=== PATIENT | male | born 1985 | race Caucasian/White ===

== ENCOUNTER 2016-06-11 09:18 | Inpatient (IN) ==
[2016-06-11] MEDS ORDERED: VANCOMYCIN 1 GM/NS 250 ML IV ONE ×2 (09:52→17:00)
--- NOTE | 2016-06-11 09:53 | PROVIDER DOCUMENTATION ---
HPI-Rash/Wound/ReCheck - General Source: patient - History of Present Illness-Dermatology Location: reports: upper extremity (left forearm) Quality: reports: painful Severity: reports: moderate Onset/Duration: reports: abrupt, 3 days ago Timing: reports: still present, getting worse Context/Associated Symptoms: reports: insect bite/sting Locality of Occurance: Home Similar Symptoms Previously?: No Recently seen or treated by another doctor?: No <Larry Acosta - Last Filed: 06/11/16 09:48> <Iban Ogden - Last Filed: 06/11/16 12:33> - General Chief Complaint: Sores/Lesions Stated Complaint: RASH Time Seen by Provider: 06/11/16 09:47 Allergies/Adverse Reactions: Allergies Allergy/AdvReac Type Severity Reaction Status Date / Time codeine Allergy Mild HIVES Verified 01/05/16 20:44 Home Medications: Home Medication List Medication Instructions Recorded Confirmed Last Taken Type Oxycodone HCl/Acetaminophen 1 - 2 each PO Q4-6H PRN PRN #60 01/15/16 Unknown Rx [Percocet 5-325 mg Tablet] tablet - History of Present Illness-Dermatology Nature of Presenting Problem: pt is a 31 y/o M that presents with redness to left forearm after getting a possible insect bite x 3 days ago. patient reports area was small like a dime and now has redness to it. reports fever but no n/v/d. Patient reports getting dirt in it. (Larry Acosta) Review of Systems - Adult - REVIEW OF SYSTEMS - ADULT Constitutional: reports: fever. denies: chills Eyes: reports: no symptoms reported Ears, Nose, Mouth & Throat: reports: no symptoms reported Cardiovascular: denies: chest pain, palpitations, syncope Respiratory: denies: cough, shortness of breath, other Gastrointestinal: denies: abdominal pain, diarrhea, nausea, vomiting Genitourinary: reports: no symptoms reported Musculoskeletal: denies: joint pain, joint swelling Integumentary: reports: skin sores/ulcer. denies: hives, hair loss Neurological: reports: no symptoms reported Psychiatric: reports: no symptoms reported Endocrine: reports: no symptoms reported Hematologic/Lymphatic: reports: no symptoms reported Allergic/Immunologic: reports: no symptoms reported All Other Systems: Reviewed and Negative <Larry Acosta - Last Filed: 06/11/16 09:48> Past History - Adult - PAST MEDICAL HISTORY-ADULT Review of Records: reports: Old Records Reviewed, Nursing Assessment Review, Medications Reviewed Cardiovascular: reports: murmur, other (hx of tachycardia) Neurological: reports: headaches/migraines Psychiatric: reports: anxiety - PRIOR SURGERIES/PROCEDURES Surgical/Procedure History: reports: none - IMMUNIZATION STATUS Childhood Immunizations: UTD Flu Vaccine: NUTD - FAMILY HISTORY Family History: reviewed, not pertinent - SOCIAL HISTORY Smoking: cigarettes, less than 1 pack/day Living Situation: family <Larry Acosta - Last Filed: 06/11/16 09:48> Physical Exam-General - PHYSICAL EXAM-ADULT Initial Vital Signs Reviewed: Yes - CONSTITUTIONAL General Appearance: alert, no apparent distress - EYES Eyes: PERRL/EOMI, pink conjunctivae - HEAD, EARS, NOSE, MOUTH & THROAT HENMT: normocephalic/atraumatic, moist mucous membranes, normal ENT inspection - NECK Neck: full range of motion, normal inspection - RESPIRATORY Respiratory: lungs clear, normal breath sounds, no respiratory distress, no accessory muscle use - CARDIOVASCULAR Cardiovascular: no edema, no murmur, tachycardia - GASTROINTESTINAL (ABDOMEN) Abdominal Exam: normal bowel sounds, non tender, soft - MUSCULOSKELETAL Extremity: no pedal edema, normal capillary refill, pelvis stable - SKIN Integumentary: warm/dry, erythema (left forearm indurated with no fluquence), warm (left forearm hot to touch), other (dime size area to left forearm circular ) - PSYCHIATRIC Psych/Mental Status: normal mood/affect, oriented x 3 <Larry Acosta - Last Filed: 06/11/16 09:48> Progress <Larry Acosta - Last Filed: 06/11/16 09:48> - CONSULTS/PCP/HOSPITALIST Notification #1 *Consult/PCP/Hospitalist*: Dr. Pérez Time Discussed: 12:28 Reason/Comments: Admission Consult Disposition: Admit <Iban Ogden - Last Filed: 06/11/16 12:33> - PLAN OF CARE/RESULTS Progress/Plan/Lab Results: Dr. Baldwin at bedside for evaluation Discussed results and plan of care with patient. Patient agrees with plan and verbalizes understanding. Vital Signs Temp Pulse Resp BP Pulse Ox 06/11/16 11:39 94 H 16 95 06/11/16 09:43 100 F H 122 H 18 137/85 99 codeine Allergy (Mild, Verified 01/05/16 20:44) HIVES Oxycodone HCl/Acetaminophen [Percocet 5-325 mg Tablet] 1 - 2 each PO Q4-6H PRN PRN #60 tablet 01/15/16 Laboratory 06/11/16 06/11/16 06/11/16 10:09 10:00 10:00 WBC 19.27 H RBC 5.69 Hgb 16.0 Hct 47.8 MCV 84.0 MCH 28.1 MCHC 33.5 RDW Std Deviation 14.4 Plt Count 145 MPV 11.5 H Immature Gran % (Auto) 0.4 Neut % (Auto) 84.9 H Lymph % (Auto) 5.2 L [place] % (Auto) 9.3 Eos % (Auto) 0.0 Baso % (Auto) 0.2 Immature Gran # (Auto) 0.07 H Neut # (Auto) 16.38 H Lymph # (Auto) 1.00 L [place] # (Auto) 1.79 H Eos # (Auto) 0.00 Baso # (Auto) 0.03 Sodium 132 L Potassium 4.0 Chloride 93 L Carbon Dioxide 21 L Anion Gap 18 BUN 10 Creatinine 0.9 Estimated GFR/1.73 m2 > 60 BUN/Creatinine Ratio 11 Glucose 118 H Calculated Osmolality 265 Calcium 9.8 Total Bilirubin 1.00 AST 22 ALT 38 Alkaline Phosphatase 135 H Total Protein 8.8 H Albumin 5.0 Globulin 4.0 Albumin/Globulin Ratio 1.0 Plasma Lactate 1.3 Orders Category Date Time Status Saline Loc NOW Care 06/11/16 09:51 Completed BLOOD CULTURE [BLDCUL] Stat Lab 06/11/16 10:26 Ordered CBC WITH ELECTRONIC DIFF [HEME] Stat Lab 06/11/16 10:09 Completed COMPREHENSIVE METABOLIC PANEL [CHEM] Stat Lab 06/11/16 10:00 Completed LACTATE, PLASMA [CHEM] Stat Lab 06/11/16 10:00 Completed UDS [URINE DRUG SCREEN PL] Stat Lab 06/11/16 12:[address] [URINALYSIS] Stat Lab 06/11/16 12:13 Ordered 0.9% Sodium Chloride Inj [Ns] 1,000 ml Med 06/11/16 10:25 Discontinued IV 999 mls/hr Acetaminophen [Tylenol] Med 06/11/16 10:27 Discontinued 1,000 mg PO NOW ONE Vancomycin 1 gm/Ns 250 ml Med 06/11/16 09:52 Discontinued IV NOW Laboratory Tests 06/11/16 06/11/16 06/11/16 10:00 10:00 10:09 WBC 19.27 H RBC 5.69 Hgb 16.0 Hct 47.8 MCV 84.0 MCH 28.1 MCHC 33.5 RDW Std Deviation 14.4 Plt Count 145 MPV 11.5 H Immature Gran % (Auto) 0.4 Neut % (Auto) 84.9 H Lymph % (Auto) 5.2 L [place] % (Auto) 9.3 Eos % (Auto) 0.0 Baso % (Auto) 0.2 Immature Gran # (Auto) 0.07 H Neut # (Auto) 16.38 H Lymph # (Auto) 1.00 L [place] # (Auto) 1.79 H Eos # (Auto) 0.00 Baso # (Auto) 0.03 Sodium 132 L Potassium 4.0 Chloride 93 L Carbon Dioxide 21 L Anion Gap 18 BUN 10 Creatinine 0.9 Estimated GFR/1.73 m2 > 60 BUN/Creatinine Ratio 11 Glucose 118 H Calculated Osmolality 265 Calcium 9.8 Total Bilirubin 1.00 AST 22 ALT 38 Alkaline Phosphatase 135 H Total Protein 8.8 H Albumin 5.0 Globulin 4.0 Albumin/Globulin Ratio 1.0 Plasma Lactate 1.3 (Iban Ogden) Departure <Larry Acosta - Last Filed: 06/11/16 09:48> - Departure Time of Disposition Order: 12:15 Certified Medical Emergency: Emergent <Iban Ogden - Last Filed: 06/11/16 12:33> - Departure DIAGNOSIS: Cellulitis Qualifiers: Site of cellulitis: extremity Site of cellulitis of extremity: upper extremity Laterality: left Qualified Code(s): L03.114 - Cellulitis of left upper limb Disposition: ADMITTED INPATIENT 09 Condition: Stable Referrals: None,PCP [Primary Care Provider] - Attestation - Scribe Verification/Attestation Scribe:: Larry Acosta Acting as Scribe for:: Iban Ogden Scribe documention review:: This chart was documented by a scribe and accurately reflects the service the provider performed and the decisions made by the provider. - Physician/ IRASEMA Attestation Patient care was provided by Advanced Practice Provider:: Yes Advanced Practice Provider:: Iban Ogden Advanced Practice Provider documentation review:: The Mid-level provider documentation, treatment plan and medical decision making was reviewed by the physician who agrees with all treatment and medical decision making by the MLP. <Larry Acosta - Last Filed: 06/11/16 09:48> - Physician/ IRASMEA Attestation Patient care was provided by Advanced Practice Provider:: Yes Advanced Practice Provider:: Iban Ogden Advanced Practice Provider documentation review:: The Mid-level provider documentation, treatment plan and medical decision making was reviewed by the physician who agrees with all treatment and medical decision making by the MLP. The physician spent face to face time with patient:: Yes Advanced Practice Provider documentation review:: The physician spent face to face time with this patient and agrees with all MLP documentation, treatment, and medical decision making by the MLP. See provider notes for further information. <Iban Ogden - Last Filed: 06/11/16 12:33> Physician Attestation - Physician Attestation I, the provider, attest to the following statement:: Iban Ogden Physician documentation Attestation:: This documentation recorded by the scribe accurately reflects the service I personally performed and the decisions made by me. <Larry Acosta - Last Filed: 06/11/16 09:48> - Physician Attestation I, the provider, attest to the following statement:: Iban Ogden Physician documentation Attestation:: This documentation recorded by the scribe accurately reflects the service I personally performed and the decisions made by me. <Iban Ogden - Last Filed: 06/11/16 12:33>
[2016-06-11 10:10] LABS: MANUAL DIFF NEEDED? NO
[2016-06-11 10:12] LABS: BASO% 0.2 % (0.0-0.8); HEMATOCRIT 47.8 % (42.0-52.0); IMM GRAN# 0.07 X1000 (0.0-0.04); IMM GRAN% 0.4 % (0.0-0.5); LYMPH% 5.2 % (20.5-51.1); MCH 28.1 PG (27-31); MCHC 33.5 g/dL (33-37); MONO# 1.79 X1000 (0.11-0.59); MONO% 9.3 % (1.7-9.3); MPV 11.5 FL (7.4-10.4); NEUT% 84.9 % (42.2-75.2); PLT 145 X1000 (130-400); RBC 5.69 XMIL (4.7-6.1)
[2016-06-11] MEDS ORDERED: NS 1,000 ML IV ONE (10:25)
[2016-06-11] MEDS ORDERED: TYLENOL PO ONE (10:27)
[2016-06-11 10:44] LABS: AGAP 18; ALKALINE PHOSPHATASE 135 U/L (32-122); BUN 10 mg/dL (8-22); CALCIUM 9.8 mg/dL (8.8-10.2); CHLORIDE 93 mmol/L (98-107); COSMO 265; GOT 22 U/L (10-34); GPT 38 U/L (10-44); SODIUM 132 mmol/L (136-145); TCO2 21 mmol/L (25-35); TOTAL PROTEIN 8.8 g/dL (6.3-8.3)
[2016-06-11] MEDS ORDERED: VANCOMYCIN IV PER PHARMACY MISC SCH (12:30)
[2016-06-11 14:09] LABS: URINE SOURCE CLEAN CATCH
[2016-06-11 14:22] LABS: BILIRUBIN URINE NEGATIVE (NEGATIVE); BLOOD URINE NEGATIVE (NEGATIVE); CLARITY CLEAR (CLEAR); COLOR YELLOW; GLUCOSE URINE NEGATIVE (NEGATIVE); LEUKOCYTES URINE NEGATIVE (NEGATIVE); NITRITE URINE NEGATIVE (NEGATIVE); PROTEIN URINE TRACE mg/dL (NEGATIVE); URINE MICROSCOPIC NEEDED? YES; UROBILINOGEN URINE NORMAL
[2016-06-11 14:24] LABS: UR AMPHETAMINES QUAL NONE DETECTED (NONE DETECT); UR BARBITUATES QUAL NONE DETECTED (NONE DETECT); UR BENZODIAZEPIN QUAL PRESUMPTIVE POSITIVE (NONE DETECT); UR CANNABINOIDS QUAL PRESUMPTIVE POSITIVE (NONE DETECT); UR COCAINE QUAL NONE DETECTED (NONE DETECT); UR MDMA QUAL NONE DETECTED (NONE DETECT); UR METHADONE QUAL NONE DETECTED (NONE DETECT); UR METHAMPHETAMINE QUAL NONE DETECTED (NONE DETECT); UR OPIATES QUAL NONE DETECTED (NONE DETECT); UR OXYCODONE QUAL PRESUMPTIVE POSITIVE (NONE DETECT); UR PCP QUAL NONE DETECTED (NONE DETECT); UR TCA QUAL PRESUMPTIVE POSITIVE (NONE DETECT)
[2016-06-11 14:28] LABS: URINE EPITHELIAL CELLS <10 /HPF (<10); URINE WBC <10 /HPF (<10)
[2016-06-11] MEDS: TORADOL IV PRN ×2 (15:05→22:19)
[2016-06-11] MEDS: SODIUM CHLORIDE 0.9% INJ SCH (15:20)
[2016-06-11] MEDS: NS 1,000 ML IV SCH (15:20)
[2016-06-11] MEDS: PROTONIX IV SCH (15:20)
--- NOTE | 2016-06-11 15:23 | HISTORY AND PHYSICAL ---
PRIMARY CARE PHYSICIAN: None. CHIEF COMPLAINT: Left forearm redness and swelling for 3 days that has progressively worsened. HISTORY OF PRESENTING ILLNESS: This is a 31-year-old male who presented to [facility] ER with complaints of left forearm redness that had progressively worsened for 3 days. 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 When he did, he noted that he had black oil on his arm. He had a previous scab to his left forearm and when he woke up the next morning, it began being erythematous, edematous, and warm to touch, and has progressively worsened. Workup in the ER showed a temperature of 100 degrees, a pulse of 122, and blood pressure was 137/ 85. Workup in the ER showed a white blood cell count of 19.27. Sodium was 132. Urinalysis was negative. Urine drug screen was presumptive positive for oxycodone, tricyclics, benzodiazepines , and cannabinoids. The patient does state that he was a former IV drug user, but has not used in over a year. He is being admitted for further evaluation and treatment. PAST MEDICAL HISTORY: Migraines and anxiety. PAST SURGICAL HISTORY: None. FAMILY HISTORY: Noncontributory. SOCIAL HISTORY: He currently lives with family. Smokes 1-2 packs of cigarettes a day and has done so since he was 17 years old. Denies any alcohol and uses marijuana occasionally. Last use was 2 weeks ago. ALLERGIES: Codeine. HOME MEDICATIONS: Percocet 5, 1-2 p.o. q.4-6 hours p.r.n. will be continued. LABORATORY DATA: White blood cell count of 19.27, hemoglobin 16, hematocrit 47.8, platelets 145,000. Sodium 132, potassium 4.0, chloride 93, CO2 of 21, BUN 10, creatinine 0.9, glucose 118. Plasma lactate was 1.3. Urinalysis was negative. Urine drug screen was presumptive positive for oxycodone, tricyclics, benzodiazepines, and cannabinoids. REVIEW OF SYSTEMS: Positive for a subjective fever, some chills. Denied any dizziness, lightheadedness, chest pain, coughing, shortness of breath, abdominal pain, constipation, diarrhea, burning or hurting with urination. He is positive for pain to his left forearm. PHYSICAL EXAMINATION: VITAL SIGNS: On arrival, he had a temperature of 100 degrees, with a pulse of 122, respirations 18, blood pressure 137/85, saturating 99% on room air. Currently, his temperature is down to 99.1, pulse 90, respirations 16, blood pressure 121/74, saturating 95% on room air. GENERAL: This is a 31-year-old male who is sitting on the side of the bed and answers questions appropriately. HEENT: Normocephalic and atraumatic. Pupils are equal, round, and reactive to light. Extraocular movements are intact. Oropharynx and nares are clear. NECK: Supple. LUNGS: Clear to auscultation bilaterally, with equal lung expansion and chest wall movement. HEART: Regular rate and rhythm. No murmurs, rubs, or gallops. ABDOMEN: Soft, nontender, nondistended. Bowel sounds are present x4 quadrants. EXTREMITIES: Patient is noted to have erythema, edema, and warmth to touch. He is noted to have about a dime-sized circular scabbed area to his lower left forearm. It is unclear if he has had any type of bug bite or if this is strictly just a scabbed area from a possible scratch that has gotten infected. Otherwise, no clubbing, cyanosis, or edema. NEUROLOGICAL: The cranial nerves 2-12 are grossly intact. ASSESSMENT: 1. Left forearm cellulitis. 2. Leukocytosis. 3. Tobacco abuse. 4. Marijuana abuse. PLAN: He is being admitted to the medical unit at [facility]. Placed on a regular diet. Blood cultures x2 are pending. Placed him on vancomycin per pharmacy protocol. Normal saline at 125 mL an hour. Toradol 30 mg IV q.6 hours p.r.n., Protonix 40 mg IV q.24, Zofran 4 mg IV q.4 hours p.r.n., and his home medication of Percocet 5, 1-2 p.o. q.4-6 hours p.r.n. We will recheck a CBC and BMP in the a.m. Dictated by HEATHER Silva for Brigido Pérez MD pt examined, agree with above, suspicious he may be injecting versus skin popping, will follow closely, puruse imaging tomorrow if not clinically improved APENOT MTDD
[2016-06-11] MEDS: PERCOCET-5 PO PRN ×2 (16:04→20:30)
[2016-06-11] MEDS: LOVENOX SUBQ SCH (17:03)
[2016-06-11] MEDS: NICODERM PATCH TD SCH (20:26)
[2016-06-11] MEDS: KLONOPIN PO SCH (23:05)
--- NOTE | 2016-06-12 00:19 | EKG Report ---
Test Performed on : 06/11/2016 10:33:33 PM Test Reason : CP Blood Pressure : / mmHG Vent. Rate : 077 BPM Atrial Rate : 077 BPM P-R Int : 126 ms QRS Dur : 092 ms QT Int : 338 ms P-R-T Axes : 068 086 065 degrees QTc Int : 382 ms Normal sinus rhythm. Incomplete right bundle branch block Borderline ECG When compared with ECG of 16-OCT-2014 16:08, QT has shortened Confirmed by Omi BYERS, Alin Heller ([id number]) on 06/12/2016 8:00:07 PM
[2016-06-12] MEDS: NS 1,000 ML IV SCH ×3 (00:58→12:09)
[2016-06-12] MEDS: PERCOCET-5 PO PRN ×4 (01:03→11:57)
[2016-06-12] MEDS: TYLENOL PO PRN (03:15)
[2016-06-12] MEDS ORDERED: BLISTEX MEDICATED BERRY LIP BALM TOP PRN (03:17)
[2016-06-12] MEDS: VANCOMYCIN 1,400 MG in NS 250 ML IV SCH ×2 (04:03→18:14)
[2016-06-12] MEDS: TORADOL IV PRN ×3 (04:07→20:38)
[2016-06-12] MEDS: ZOFRAN IV PRN (05:49)
[2016-06-12 06:18] LABS: MANUAL DIFF NEEDED? NO
[2016-06-12 06:29] LABS: BASO% 0.2 % (0.0-0.8); EOS# 0.11 X1000 (0.0-0.7); EOS% 1.2 % (0.0-10.0); HEMATOCRIT 38.1 % (42.0-52.0); HEMOGLOBIN 12.6 g/dL (14.0-18.0); IMM GRAN# 0.03 X1000 (0.0-0.04); IMM GRAN% 0.3 % (0.0-0.5); LYMPH# 0.95 X1000 (1.2-3.4); LYMPH% 10.1 % (20.5-51.1); MCH 28.2 PG (27-31); MCHC 33.1 g/dL (33-37); MCV 85.2 FL (81-99); MONO# 1.38 X1000 (0.11-0.59); MONO% 14.7 % (1.7-9.3); MPV 12.3 FL (7.4-10.4); NEUT% 73.5 % (42.2-75.2); PLT 111 X1000 (130-400); RBC 4.47 XMIL (4.7-6.1)
[2016-06-12 07:34] LABS: AGAP 12; BUN 8 mg/dL (8-22); CALCIUM 8.8 mg/dL (8.8-10.2); CHLORIDE 105 mmol/L (98-107); COSMO 273; SODIUM 137 mmol/L (136-145); TCO2 20 mmol/L (25-35)
--- NOTE | 2016-06-12 08:58 | Diag Imaging Result Document ---
PROCEDURE NAME: CHEST-PORTABLE - 06/11/2016 PORTABLE CHEST: COMPARISON: 06/14/2014. FINDINGS: Heart size is normal. The lungs appear clear. There is no pleural effusion or pneumothorax identified. IMPRESSION: No evidence of acute disease.
[2016-06-12] MEDS: NICODERM PATCH TD SCH (09:56)
[2016-06-12] MEDS: KLONOPIN PO SCH ×2 (09:56→20:38)
[2016-06-12] MEDS ORDERED: NUBAIN IV PRN ×2 (13:42→23:02)
[2016-06-12] MEDS: PROTONIX IV SCH (14:35)
[2016-06-12] MEDS: SODIUM CHLORIDE 0.9% INJ SCH (14:35)
[2016-06-12] MEDS: CLINDAMYCIN 600 MG/NS 50 ML IV SCH (16:38)
[2016-06-12] MEDS: PERCOCET-10 PO PRN ×2 (16:39→23:57)
[2016-06-12] MEDS: LOVENOX SUBQ SCH (16:39)
[2016-06-12 18:21] LABS: UR AMPHETAMINES QUAL NONE DETECTED (NONE DETECT); UR BARBITUATES QUAL NONE DETECTED (NONE DETECT); UR BENZODIAZEPIN QUAL PRESUMPTIVE POSITIVE (NONE DETECT); UR COCAINE QUAL NONE DETECTED (NONE DETECT); UR MDMA QUAL NONE DETECTED (NONE DETECT); UR METHADONE QUAL NONE DETECTED (NONE DETECT); UR METHAMPHETAMINE QUAL NONE DETECTED (NONE DETECT); UR OPIATES QUAL NONE DETECTED (NONE DETECT); UR OXYCODONE QUAL PRESUMPTIVE POSITIVE (NONE DETECT); UR PCP QUAL NONE DETECTED (NONE DETECT); UR TCA QUAL NONE DETECTED (NONE DETECT)
[2016-06-12 18:22] LABS: UR CANNABINOIDS QUAL PRESUMPTIVE POSITIVE (NONE DETECT)
--- NOTE | 2016-06-12 18:50 | PROGRESS NOTE ---
DATE: 06/12/2016 SUBJECTIVE: Patient has no focal complaints except pain and swelling and his pain is not controlled. OBJECTIVE: Vital signs: Blood pressure 132/91, heart rate of 88, respiratory rate 18, temperature 97.9 degrees. Cardiovascular: Regular rate and rhythm. Pulmonary: Bilateral breath sounds. Clear to auscultation. GI: Soft, nontender, nondistended. Bowel sounds are positive. DIAGNOSTICS: White count normal, 9, hemoglobin and hematocrit 12 and 38, platelets 111,000. His extremity exam is more swollen, more tender, and he has palpable cords along his anterior forearm extending into his antecubital fossa. PROBLEM LIST: 1. Cellulitis of the arm with concern over possible intravenous drug use. He is currently on vancomycin. His white count has greatly improved, but his clinical exam is worse I am going to progress with an ultrasound of the arm to evaluate for deep venous thrombosis versus thrombophlebitis, which again would make this suspicious for IV drug use, although he denies this currently, but has abused drugs in the past. 2. His pain is not controlled. I explained that we could not really give him IV narcotics with his history of drug abuse. He is on oxycodone which is his regular medication. I have increased that. He is on Toradol and we will give him some low-dose Nubain and explained this is all we could do for pain control because of his history. Additionally patient is leaving the floor which is suspicious for surreptitious drug use. We will continue to monitor this closely, repeat urine drug screens as necessary number. 3. Disposition. Pending resolution of his other issues.
[2016-06-12] MEDS: DESYREL PO PRN (23:57)
[2016-06-13] MEDS: CLINDAMYCIN 600 MG/NS 50 ML IV SCH ×4 (00:21→23:45)
[2016-06-13] MEDS ORDERED: NUBAIN IV PRN (02:40)
[2016-06-13] MEDS: PERCOCET-10 PO PRN ×2 (05:30→11:41)
[2016-06-13] MEDS: TORADOL IV PRN ×2 (05:30→11:41)
[2016-06-13] MEDS: VANCOMYCIN 1,400 MG in NS 250 ML IV SCH (05:30)
[2016-06-13 07:03] LABS: HEMATOCRIT 36.2 % (42.0-52.0); HEMOGLOBIN 11.9 g/dL (14.0-18.0); MCH 28.1 PG (27-31); MCHC 32.9 g/dL (33-37); MCV 85.4 FL (81-99); RBC 4.24 XMIL (4.7-6.1)
[2016-06-13 07:23] LABS: AGAP 11; BUN 7 mg/dL (8-22); CALCIUM 8.7 mg/dL (8.8-10.2); CHLORIDE 106 mmol/L (98-107); COSMO 282; POTASSIUM 3.7 mmol/L (3.5-5.1); SODIUM 141 mmol/L (136-145); TCO2 25 mmol/L (25-35)
--- NOTE | 2016-06-13 07:28 | Extremity Venous Study ---
PROCEDURE NAME: Venous U/S Left Arm - 06/12/2016 LEFT UPPER EXTREMITY VENOUS DOPPLER ULTRASOUND: COMPARISON: None. FINDINGS: There is extensive thrombosis in the cephalic and median cubital veins. The deep veins are fully compressible. Normal Doppler signal. No abnormal mass or fluid collection. IMPRESSION: Extensive superficial venous thrombosis of the cephalic and median cubital veins.
[2016-06-13] MEDS: NICODERM PATCH TD SCH ×2 (07:37→09:21)
[2016-06-13] MEDS: KLONOPIN PO SCH ×3 (07:37→14:05)
[2016-06-13] MEDS: ARIXTRA SUBQ SCH ×2 (07:38→09:21)
--- NOTE | 2016-06-13 08:48 | Diag Imaging Result Document ---
PROCEDURE NAME: FOOT COMPLETE LEFT - 06/12/2016 LEFT FOOT, 3 VIEWS: FINDINGS: There is pes cavus. There are bone plates on the 2nd metatarsal distally and stabilizing the proximal 3rd metatarsal to the 3rd cuneiform. No acute fracture or dislocation is present. IMPRESSION: No evidence of acute bony disease.
[2016-06-13] MEDS ORDERED: KLONOPIN PO SCH (09:00)
--- NOTE | 2016-06-13 09:04 | Diag Imaging Result Document ---
PROCEDURE NAME: FOREARM-LEFT - 06/12/2016 LEFT FOREARM TWO VIEWS: INDICATION: Fall. FINDINGS: No fracture, dislocation, or joint space abnormality is appreciated. IMPRESSION: No acute abnormality left forearm.
--- NOTE | 2016-06-13 09:05 | Diag Imaging Result Document ---
PROCEDURE NAME: HUMERUS-LEFT - 06/12/2016 LEFT HUMERUS: INDICATION: Fall. FINDINGS: No fracture, dislocation, or joint space abnormality is appreciated. IMPRESSION: No acute bony abnormality.
--- NOTE | 2016-06-13 09:09 | Diag Imaging Result Document ---
PROCEDURE NAME: HEAD W/O CONTRAST - 06/12/[address] SCAN OF THE BRAIN: INDICATION: Fall. COMPARISON: 01/05/2016. Preliminary interpretation was given by the on-call radiologist. FINDINGS: There are no extraaxial collections. No acute infarct or hemorrhage is demonstrated. There is no hydrocephalus. No midline shift or mass effect. The calvarium is intact. IMPRESSION: No acute intracranial abnormality is appreciated.
[2016-06-13] MEDS ORDERED: PERCOCET-10 PO PRN (13:43)
[2016-06-13] MEDS: PROTONIX IV SCH (13:57)
[2016-06-13] MEDS: SODIUM CHLORIDE 0.9% INJ SCH (13:57)
[2016-06-13] MEDS ORDERED: VANCOMYCIN 1,400 MG in NS 250 ML IV SCH (17:00)
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
[2016-06-13] MEDS ORDERED: VANCOMYCIN 1,600 MG in NS 250 ML IV SCH (18:00)
[2016-06-13] MEDS: VANCOMYCIN 1,600 MG in NS 250 ML IV SCH (18:16)
[2016-06-13] MEDS: DILAUDID PO PRN ×2 (20:39→22:53)
[2016-06-13] MEDS: KLONOPIN PO PRN (20:48)
[2016-06-13] MEDS: ZOFRAN IV PRN (21:48)
[2016-06-13] MEDS: DESYREL PO PRN (22:54)
[2016-06-13] MEDS ORDERED: NS 500 ML ONE (23:38)
[2016-06-14] MEDS: DILAUDID PO PRN ×8 (01:15→20:10)
[2016-06-14] MEDS: VANCOMYCIN 1,600 MG in NS 250 ML IV SCH ×2 (06:00→18:32)
[2016-06-14] MEDS: NICODERM PATCH TD SCH (08:25)
[2016-06-14] MEDS: KLONOPIN PO PRN ×2 (08:25→16:25)
[2016-06-14] MEDS: ZOFRAN IV PRN (08:25)
[2016-06-14] MEDS: ARIXTRA SUBQ SCH (08:25)
[2016-06-14] MEDS: CLINDAMYCIN 600 MG/NS 50 ML IV SCH ×2 (08:40→15:10)
[2016-06-14] MEDS: TORADOL IV PRN ×2 (09:45→16:25)
--- NOTE | 2016-06-14 10:06 | PROGRESS NOTE ---
DATE: 06/13/2016 ADDENDUM REPORT: I again discussed with patient the perils of high-dose opiates as well as high- dose benzodiazepines leading to respiratory suppression and . I discussed with patient that I have never actually heard of anyone taking 4 mg of Klonopin every 2 hours or every 4 hours. Unfortunately he cannot remember any pharmacy that he had gotten these prescriptions legally from. He continues to complain of pain. He continues to want to increase. He wants to take 40 mg of Percocet every 2 hours. I again discussed with him this is not an option, that this will kill his liver. I discussed him that under no circumstances can we increase his pain medication as well as continue such high-dose benzodiazepine. Patient notes that he would like to decrease his benzodiazepines, therefore, we will decrease to 1 mg 3 times a day only as needed. We will change to Dilaudid and we will follow. Unfortunately, patient has a long history of opiate use and abuse, and I am not sure that it is possible to get adequate pain control given his past history. cc: MD Brigido Parsons MD
[2016-06-14] MEDS: PROTONIX IV SCH (13:50)
--- NOTE | 2016-06-14 14:18 | PROGRESS NOTE ---
DATE: 06/14/2016 SUBJECTIVE: The patient continues to have complaints of increased pain. He is asking for Dilaudid every hour. He is asking to increase his Klonopin. He is asking to take Toradol every hour. OBJECTIVE: Vital Signs: Reviewed and stable. Temperature 98 degrees, pulse 102, blood pressure 121/79. General: Patient is a well-developed male who is in no respiratory distress. He is awake, alert. He appears to be in much more pain while he is lying in his examination room than he was while he was visiting someone in bed 286. As I walked in, they were laughing and cutting up; however, upon entering his room, he was having difficulty talking. He stated that his pain was severe. Cardiovascular: Regular rate. Chest: Relatively clear. Abdomen: Soft. Extremities: Moves all extremities. Skin: He is noted to have less induration of his left forearm on my examination; however, he states that it is much worse than yesterday. Today it is soft. Yesterday it was much more hard. ASSESSMENT: 1. Cellulitis of the left upper extremity appears to be improving. 2. Gram-positive cocci in blood. Results still pending. 3. Leukocytosis, resolved. 4. Sepsis, resolved. 5. Pain control. Discussed with patient again today that we cannot increase his Klonopin nor his Dilaudid. We will continue IV antibiotics until his culture and sensitivity returns. At that point, hopefully, can be discharged home. cc: MD Brigido Parsons MD
[2016-06-14] MEDS: SEPTRA DS PO SCH ×2 (15:10→20:10)
[2016-06-14] MEDS: TYLENOL PO PRN (15:10)
--- NOTE | 2016-06-14 21:34 | EKG Report ---
Test Performed on : 06/14/2016 3:00:04 PM Test Reason : cp Blood Pressure : / mmHG Vent. Rate : 081 BPM Atrial Rate : 081 BPM P-R Int : 134 ms QRS Dur : 100 ms QT Int : 340 ms P-R-T Axes : 063 085 055 degrees QTc Int : 394 ms Normal sinus rhythm. Incomplete right bundle branch block Borderline ECG When compared with ECG of 11-JUN-2016 22:33, No significant change was found Confirmed by Varinder Bauer MD ([id number]) on 07/09/2016 10:37:06 PM
[2016-06-15] MEDS: DILAUDID PO PRN ×4 (00:20→14:34)
[2016-06-15] MEDS: TORADOL IV PRN ×2 (00:21→06:58)
[2016-06-15] MEDS: CLINDAMYCIN 600 MG/NS 50 ML IV SCH ×2 (00:22→08:48)
[2016-06-15] MEDS: ZOFRAN IV PRN (00:30)
[2016-06-15 00:46] LABS: UR AMPHETAMINES QUAL NONE DETECTED (NONE DETECT); UR BARBITUATES QUAL NONE DETECTED (NONE DETECT); UR BENZODIAZEPIN QUAL PRESUMPTIVE POSITIVE (NONE DETECT); UR CANNABINOIDS QUAL NONE DETECTED (NONE DETECT); UR COCAINE QUAL NONE DETECTED (NONE DETECT); UR MDMA QUAL NONE DETECTED (NONE DETECT); UR METHADONE QUAL NONE DETECTED (NONE DETECT); UR METHAMPHETAMINE QUAL NONE DETECTED (NONE DETECT); UR OPIATES QUAL PRESUMPTIVE POSITIVE (NONE DETECT); UR OXYCODONE QUAL NONE DETECTED (NONE DETECT); UR PCP QUAL NONE DETECTED (NONE DETECT); UR TCA QUAL NONE DETECTED (NONE DETECT)
[2016-06-15] MEDS ORDERED: TEARISOL OPH SOLUTION BOTH EYES PRN ×2 (04:36→16:42)
[2016-06-15] MEDS ORDERED: NS 500 ML ONE ×2 (06:55→17:31)
[2016-06-15] MEDS: VANCOMYCIN 1,600 MG in NS 250 ML IV SCH (06:57)
[2016-06-15] MEDS: NICODERM PATCH TD SCH (08:49)
[2016-06-15] MEDS: SEPTRA DS PO SCH (08:49)
[2016-06-15] MEDS: ARIXTRA SUBQ SCH (08:49)
[2016-06-15] MEDS: KLONOPIN PO PRN ×3 (08:53→20:53)
[2016-06-15] MEDS ORDERED: VANCOMYCIN 1,600 MG in NS 250 ML IV SCH ×2 (09:00→18:00)
[2016-06-15] MEDS ORDERED: AUGMENTIN PO SCH ×2 (09:00→21:00)
[2016-06-15 09:56] LABS: HEMOGLOBIN 12.8 g/dL (14.0-18.0); MCH 28.6 PG (27-31); MCHC 33.7 g/dL (33-37); MPV 11.3 FL (7.4-10.4); RBC 4.47 XMIL (4.7-6.1)
[2016-06-15 10:13] LABS: AGAP 8; ALBUMIN 3.5 g/dL (3.5-5.0); ALKALINE PHOSPHATASE 106 U/L (32-122); BUN 7 mg/dL (8-22); CALCIUM 8.6 mg/dL (8.8-10.2); CHLORIDE 105 mmol/L (98-107); COSMO 274; GOT 35 U/L (10-34); GPT 42 U/L (10-44); POTASSIUM 3.8 mmol/L (3.5-5.1); SODIUM 138 mmol/L (136-145); TCO2 25 mmol/L (25-35); TOTAL PROTEIN 6.9 g/dL (6.3-8.3)
--- NOTE | 2016-06-15 11:07 | PROGRESS NOTE ---
DATE: 06/15/2016 SUBJECTIVE: Patient without any new complaints this morning. He again is asking to increase his pain medications. Would like to have Dilaudid 4 mg every 2 hours instead of 2 mg every 4 hours. PHYSICAL EXAMINATION: Vital Signs: Temperature 97, pulse 60, respiratory rate 18, BP 103/67, saturation 100% on room air. General: Patient is a well developed, well nourished male who is in currently no respiratory distress. He is awake, alert. Neck: Supple. CV: Regular rate. 3/6 MIRNA. Unchanged from previous exam. Chest: Relatively clear. Abdomen: Soft. Extremities: Moves all extremities. Skin: Much less erythema and edema of his left forearm. He does have a new nodule starting on his right forearm. He still is afebrile. DIAGNOSTIC DATA: CBC normal. CMP is pending. ASSESSMENT: 1. Cellulitis, left forearm and currently right forearm secondary to Streptococcus pyogens which is highly sensitive to ceftriaxone, Levaquin, and penicillin. 2. Pain control. I again discussed with patient that I am increasingly doubtful that he will ever achieve the pain control that he prefers. We certainly cannot continue to increase his pain medication. 3. Leukocytosis, resolved. PLAN: The patient has a bicuspid aortic valve. Dr. Martinez feels though he needs to have a MEME. Will stay in the hospital and will have this done in the a.m., and then further antibiotic choice after that. Again, discussed with patient that he cannot be going downstairs while he is on such high doses of medications. There were some reports of him being found crawling out of a storm drain yesterday, although patient states he did not leave the building. He clearly was seen outside the building and was escorted back in. Unfortunately, patient is an intentionally poor historian. cc: MD Brigido Parsons MD [facility] NETWORKShirley
[2016-06-15] MEDS: PROTONIX IV SCH (14:34)
[2016-06-15] MEDS ORDERED: BLISTEX MEDICATED BERRY LIP BALM TOP PRN (16:38)
[2016-06-15] MEDS ORDERED: DILAUDID PO PRN ×2 (16:40→16:46)
[2016-06-15] MEDS ORDERED: TYLENOL PO PRN (16:43)
[2016-06-15] MEDS ORDERED: ZOFRAN IV PRN (16:43)
[2016-06-15] MEDS: OFIRMEV 1000 MG/ISOTONIC SOLN 1,000 MG/100 ML BOTTLE IV SCH (17:34)
[2016-06-15] MEDS: CLINDAMYCIN 600 MG/NS 600 MG/50 ML IVPB IV SCH (19:30)
[2016-06-15] MEDS ORDERED: DILAUDID PO ONE (20:36)
[2016-06-16] MEDS: DESYREL PO PRN (00:01)
[2016-06-16] MEDS: TORADOL IV PRN ×5 (00:01→23:46)
[2016-06-16] MEDS: CLINDAMYCIN 600 MG/NS 600 MG/50 ML IVPB IV SCH (00:42)
[2016-06-16] MEDS: DILAUDID PO PRN ×5 (00:42→17:02)
[2016-06-16] MEDS: OFIRMEV 1000 MG/ISOTONIC SOLN 1,000 MG/100 ML BOTTLE IV SCH ×3 (04:50→12:04)
[2016-06-16] MEDS: KLONOPIN PO PRN ×3 (06:20→19:55)
--- NOTE | 2016-06-16 08:12 | Diag Imaging Result Document ---
PROCEDURE NAME: LUMBAR SPINE 2-VIEWS - 06/16/2016 LUMBAR SPINE, AP AND LATERAL: FINDINGS: The pedicles are intact. The disk spaces are well maintained. There has been no significant change since the previous examination of 03/03/2012. IMPRESSION: No acute disease.
[2016-06-16] MEDS: ROCEPHIN 2 GM/NS 2 GM/50 ML IVPB IV SCH (08:40)
--- NOTE | 2016-06-16 08:40 | Diag Imaging Result Document ---
PROCEDURE NAME: US RENAL 2 (RETROPER) COMPLETE - 06/16/2016 RENAL ULTRASOUND: COMPARISON: None available. FINDINGS: The kidneys are grossly normal in echotexture with no discrete mass or hydronephrosis. No renal stones can be identified sonographically. The right kidney measures 11.4 cm and left kidney measures 11.6 cm in the greatest longitudinal axes. The urinary bladder is grossly unremarkable. IMPRESSION: Unremarkable renal ultrasound.
[2016-06-16] MEDS: ARIXTRA SUBQ SCH (08:42)
[2016-06-16] MEDS: NICODERM PATCH TD SCH (08:42)
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
--- NOTE | 2016-06-16 11:20 | CONSULTATION ---
DATE OF CONSULTATION: 06/16/2016 CONCLUSION: The patient has a Group A streptococcal bacteremia. I think this originates from an infected area on the patient's left arm. According to the patient he had an ingrown hair on the arm. The lesion was squeezed, pus came out, and the lesion became moral erythematous and there was some erythema on other arm. The patient has superficial phlebitis of his arms which could be due to IV drug abuse and the source of his bacteremia. RECOMMENDATIONS: I have switched the patient to Rocephin and have discontinued Augmentin and clindamycin. DISCUSSION: As mentioned above, the patient had a lesion on his left arm, mainly an ingrown hair that became red and swollen. His live in the female squeezed the area and pus came out and the erythema spread. He also said for awhile he had redness on the right arm as well. He also now has been complaining of low back pain and left flank pain. He did not complain of having fever or shaking chills. His lab work thus far shows a CBC with a white count of 8170, hemoglobin 11.9, and platelet count 127,000. Creatinine is 0.8. GFR is greater than 60. Urinalysis did not show any bacteria or white cells. The patient had one loose stools today but has not had any others. He is passing his urine without difficulty, although he says the urine looks darker than usual. He in the past 2 days has not felt like eating. Also, in the last 2 days he has had low back and flank pain. RADIOGRAPHIC STUDIES: The patient had a venous study done and it showed superficial venous thrombosis of the cephalic and median cubital veins involving the left arm. The arm does not say he had x-rays of the forearm and humerus which showed no acute disease. The patient's chest x-ray shows no acute disease as well. The lungs are clear. PAST MEDICAL HISTORY/REVIEW OF SYSTEMS: Eyes and ears: Patient wears glasses but his hearing is okay. Neck: No stiffness. Respiratory: Prior this present illness had not had any trouble breathing. He was not coughing. Cardiovascular: No chest pain or palpitations. Gastrointestinal: As mentioned above. In the past few days since he has cellulitis of the arm he has been anorectic. He passed one loose stool but this has stopped. Neurologic: No seizures or motor sensory deficit. Endocrine: No history of diabetes or thyroid disease. The remainder of the patient's review of systems was completed and was negative. PREVIOUS HOSPITALIZATIONS AND OPERATIONS: He has had surgery on his left foot. MEDICAL DISEASES: Negative for diabetes mellitus and hypertension. The patient did tell me that he at one time abused IV drugs, but he said he has not done that in about a year. FAMILY HISTORY: Positive for cancer and hypertension. INFECTIOUS DISEASE: Negative for pneumonia and urinary tract infection. MEDICAL DISEASES: Negative for diabetes mellitus and hypertension. PREVIOUS HOSPITALIZATIONS AND OPERATIONS: He has had surgery on his left foot. SOCIAL HISTORY[place] He lives with a female for 8 years but they are technically not . He smokes cigarettes. He used to do IV drug abuse but he said he has not done that in over a year. He does not drink alcoholic beverages. The patient has dogs and horses where he lives. 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 ALLERGIES: The only drug allergy the patient has is codeine. HOME MEDICATIONS: Include oxycodone and Klonopin. PHYSICAL EXAMINATION: Vital Signs: Temperature is 98.7 degrees, pulse 82, respirations 16, blood pressure 112/57. Patient weighs 145 pounds. General: This is a fairly healthy -appearing young male who in no acute distress. Integument: Patient had an erythematous macular area on the left arm where he said he had an ingrown hair and pus came out. He had some tiny reddish papular areas on his arms. There was no confluent erythema on the arms. There was not any tenderness or fluctuance in either arm. Head eyes, ears, nose and Throat: He can hear my spoken words and see near objects. No drainage noted from the nose or ears. Patient had good oral hygiene. Neck: No meningismus. Thorax: No increased AP diameter. Lungs: Clear to auscultation. Cardiovascular: Heart rate was regular. Peripheral pulses are palpable. Abdomen: Soft and nontender. No costovertebral angle tenderness. Bones, joints, muscles: There was no low back tenderness. Patient's legs were not swollen or erythematous. Neurologic: The patient is alert. He can move his extremities. There is no tremor. Her sensation is intact to touch. His memory, as regarding his medical history was intact. Integument: Patient has some erythematous areas as described above on the patient's arms. Thank you for the consult. cc: Rah Smith MD [facility]PITALShirley
[2016-06-16] MEDS ORDERED: PROTONIX IV SCH (15:00)
[2016-06-16] MEDS ORDERED: SODIUM CHLORIDE 0.9% INJ SCH (15:00)
--- NOTE | 2016-06-16 16:41 | ECHO REPORT ---
ORDER DATE: 06/13/2016 INTERPRETING PHYSICIAN: Dr. Martinez REQUESTING PHYSICIAN: CLINICAL INDICATIONS: This is a 31-year-old male intravenous drug user with bacteremia. Blood culture is positive for Streptococcus pyogenes group A. M-MODE MEASUREMENTS: Right ventricle: 2.6 cm. Left ventricle end diastole: 4.4 cm. Left ventricle end systole: 3.4 cm. Posterior wall: 1.0 cm. Interventricular septum: 1.0 cm. Left atrium: 3.9 cm. Aortic root: 3.1 cm. SUMMARY OF 2-DIMENSIONAL IMAGIN. Left ventricular function is normal. Ejection fraction is estimated at 55% to 60%. 2. The right ventricle is normal. 3. The aortic valve is a bicuspid valve. Color flow mapping showed mild degree of regurgitation. 4. The atria are normal. 5. The mitral valve looks normal. Color flow mapping indicates no evidence of any significant regurgitation. 6. Pulse wave Doppler of mitral inflow is normal. 7. Tissue Doppler of septal and lateral mitral annulus averages 18 cm. 8. Pulmonary venous flow is normal. 9. There is no diastolic dysfunction. 10.Pulmonic valve appears to be grossly normal. There is no evidence of any significant regurgitation there. 11.Tricuspid valve looks grossly normal. Color flow mapping shows mild degree of regurgitation. 12.Inferior vena cava is not dilated. 13.Pulmonary pressure is estimated at 34 mmHg. 14.There is no pericardial effusion, mass or thrombus. CONCLUSIONS: This echocardiographic study shows: 1. Presence of normal left ventricular function with ejection fraction of 55% to 60%. 2. Bicuspid aortic valve with mild degree of regurgitation. 3. Unremarkable tricuspid, pulmonic and mitral valves. 4. Borderline pulmonary hypertension. 5. No diastolic dysfunction. 6. Consideration might be given at performing a transesophageal echocardiogram on this patient at some point since he probably has intravascular infection due to his IVDA habit. cc: MD Laila Weinstein CRNP Alexis R. Penot, MD
--- NOTE | 2016-06-16 19:43 | PROGRESS NOTE ---
DATE: 06/16/2016 SUBJECTIVE: The patient complains of pain in his left upper extremity. OBJECTIVE: Vital Signs: Temperature 97.6 degrees, blood pressure 121/61, heart rate 71, respirations 16, O2 saturations 98% on room air. General: This is a young male sitting up in bed, in no acute distress. Head: Normocephalic, atraumatic. Heart: S1, S2 normal. Regular rate and rhythm. Lungs: Clear to auscultation bilaterally. No wheezes, no rales, no rhonchi. Abdomen: Positive bowel sounds. Soft, nontender, nondistended. Extremities: The patient does have some swelling involving the left upper extremity. Neurologic: The patient is alert and oriented x3. LABS: None. ASSESSMENT AND PLAN: 1. Group A streptococcal bacteremia. Continue on IV regimen as directed by Dr. Smith. 2. Extensive superficial venous thrombosis of the left upper extremity. Aware. 3. Bicuspid aortic valve. The patient will require a MEME once he has completed IV antibiotic therapy as determined by . 4. History of IV drug abuse. Aware. cc: Yulia Livingston MD [facility]
[2016-06-16] MEDS: DILAUDID IV PRN ×2 (19:56→23:02)
[2016-06-17] MEDS: DESYREL PO PRN (00:45)
[2016-06-17] MEDS: DILAUDID IV PRN ×3 (02:03→08:26)
[2016-06-17] MEDS: KLONOPIN PO PRN ×2 (06:24→10:36)
[2016-06-17 06:25] LABS: HEMATOCRIT 35.5 % (42.0-52.0); HEMOGLOBIN 11.7 g/dL (14.0-18.0); MCH 28.6 PG (27-31); MCV 86.8 FL (81-99); RBC 4.09 XMIL (4.7-6.1)
[2016-06-17 06:50] LABS: AGAP 14; BUN 6 mg/dL (8-22); CALCIUM 8.9 mg/dL (8.8-10.2); CHLORIDE 101 mmol/L (98-107); COSMO 274; POTASSIUM 4.1 mmol/L (3.5-5.1); SODIUM 139 mmol/L (136-145); TCO2 24 mmol/L (25-35)
[2016-06-17 07:43] VITALS: BP 138/78
[2016-06-17] MEDS: ARIXTRA SUBQ SCH (08:27)
[2016-06-17] MEDS: NICODERM PATCH TD SCH (08:27)
[2016-06-17] MEDS: ROCEPHIN 2 GM/NS 2 GM/50 ML IVPB IV SCH (08:28)
--- NOTE | 2016-06-17 09:09 | PROGRESS NOTE ---
DATE: 06/17/2016 PRESENT ILLNESS: The patient has a group A strep bacteremia originating from infections in his arm. He has areas where there is erythema and then phlebitis extending from the erythema. I suspect that he has been doing intravenous drugs and has a resulting small abscess in 1 arm, which patient said he squeezed the pus out of, and an associated phlebitis which is seen in both arms. MEDICATIONS: The patient is receiving Rocephin. PHYSICAL EXAMINATION: Vital Signs: Temperature is 98.1 degrees, pulse 87, respirations 18, blood pressure 138/78. General: This is a fairly healthy-appearing, young male. He is in no acute distress. Lungs: Clear to auscultation. Cardiovascular: Regular heart rate. I did not hear a murmur. Abdomen: Soft and nontender. Extremities: Both arms have erythematous areas and areas of phlebitis that is palpable in both arms. The Doppler study confirms that the patient has superficial phlebitis in both arms. LAB AND X-RAY: Today the patient's CBC shows a white count of 8800, hemoglobin 11.7, platelet count 138,000, creatinine 0.8. GFR is greater than 60. There is no new radiographic study today. The patient had echocardiogram where the patient did not show any evidence of vegetation. The patient's renal ultrasound was unremarkable. His lumbar spine x-ray also showed no acute disease. These 2 studies were obtained because the patient states that he was having low back and flank pain. It should be noted now that the low back and flank pain have cleared. ASSESSMENT AND PLAN: The patient has group A Streptococcus bacteremia most likely secondary to intravenous drug abuse with resulting superficial phlebitis and some other area where there was a small abscess according to the patient, which he drained. The patient wants to be discharged today and return to work. I am hesitant to put in a long-lasting catheter like a PICC or even a short- term peripheral one because I am afraid it would facilitate the patient's ability to give himself intravenous drugs. What I am going to do however is to have him come each day to the outpatient clinic, have an intravenous started for his Rocephin infusion, and then remove the intravenous after each Rocephin infusion. The patient's comorbidity I think is continued intravenous drug abuse. I plan to see the patient back in my office in 3 weeks. I am going to be treating the patient for at least 14 days with intravenous antibiotics. cc: Rah Smith MD
--- NOTE | 2016-06-17 09:37 | PROGRESS NOTE ---
DATE: 06/17/2016 ADDENDUM: I have drawn 2 more blood cultures to make sure that the bacteremia is clearing. I have asked the microbiology laboratory to notify me if either one of the blood cultures is positive. cc: Rah Smith MD
--- NOTE | 2016-06-19 05:55 | DISCHARGE SUMMARY ---
ADMISSION DATE: 06/11/2016 DISCHARGE DATE: 06/17/2016 FINAL DISCHARGE DIAGNOSES: 1. Group A strep bacteremia most likely secondary to thrombophlebitis involving the left upper extremity. 2. Extensive superficial venous thrombosis of the left upper extremity. 3. Bicuspid aortic valve. 4. History of IV drug abuse. 5. Anemia of chronic disease. 6. Polysubstance abuse. CONSULTATIONS REQUESTED DURING THIS HOSPITAL STAY: 1. Infectious Disease consultation with Dr. Smith. 2. Cardiology consultation with Dr. Martinez. IMAGING PERFORMED DURING THIS HOSPITAL STAY: 1. Portable chest x-ray performed on 06/11/2016 that revealed no acute evidence of acute disease. 2. Left upper extremity venous Doppler ultrasound which revealed extensive superficial venous thrombosis of the cephalic and median cubital vein. 3. Head CT which revealed no acute intracranial abnormality. 4. X-ray of the left forearm which revealed no acute abnormality. 5. Lumbar spine x-ray which revealed no acute disease. 6. Two-dimensional echocardiogram which revealed bicuspid aortic valve with a mild degree of regurgitation. EF of 55-60%. Borderline pulmonary hypertension. HOSPITAL COURSE: Mr. Vidales is a 31-year-old male with a history of polysubstance abuse as well as IV drug abuse who initially presented to [place] with a chief complaint of pain and swelling and redness in his left forearm. Upon arrival, the patient was noted to be tachycardic and have a low-grade temperature. The patient was admitted to the medical unit at [facility] and started on broad-spectrum antibiotics after blood cultures were obtained. The patient also had an echocardiogram done that same day that revealed a bicuspid aortic valve and an EF of 55-60%. There was concern about the patient's bicuspid aortic valve and the patient was transferred to [facility] for further assessment by the radiologist chief of breast imaging. Upon arrival, the patient was seen by the radiologist chief of breast imaging who recommended pursuing a MEME once the patient had been adequately treated with IV antibiotics. The patient was also seen by Dr. Rah Smith. The blood cultures grew out Streptococcus pyogenes. The patient's IV antibiotics were then switched to Rocephin by Dr. Smith. Slowly, the patient's erythema, redness and swelling in his left arm improved. Given the patient's history of IV drug abuse, a PICC line was not an option. The patient's vital signs and laboratory studies remained stable. It was decided that the patient could be discharged home to continue to receive IV Rocephin daily for the next 14 days. The patient was then advised to follow up with Dr. Smith in 3 weeks to determine what further treatment needed to be done. The patient agreed to the plan of action and was cleared for discharge home on 06/17/2016. DISCHARGE MEDICATIONS: 1. Klonopin 2 mg p.o. twice a day. 2. Percocet 10/325 1 tab oral every 4 hours p.r.n. for pain. 3. Rocephin 2 g IV every 24 hours to be given for a total of 14 more days. DISCHARGE DIET: Regular diet. ACTIVITY: As tolerated. FOLLOWUP INSTRUCTIONS: The patient will need to return for daily IV Rocephin infusions for the next 14 days at [facility]. These arrangements have already been made by Dr. Smith. The patient will then follow up with Dr. Smith within a 3 week period. After that follow up visit, a determination will be made upon the timing of the MEME by the radiologist chief of breast imaging. cc: Yulia Livingston MD
== END 2016-06-17 10:47 | disposition home or self-care (01) ==
LOC: P.ED 09:18 → P.MEDSURG 09:19 → EEVIPCON 09:19 → SUATTDRO 09:19 → P.MEDSURG 06-12 22:56 → UNDODISIN 06-15 15:50 → 4N 06-15 16:33
PROVIDERS: ATTEND Internal Medicine